=== PATIENT | female | born 1960 | race Native Hawaiian/Other Pacific Islander ===

== ENCOUNTER 2017-09-16 08:32 | Emergency (ER) | payer OTHER ==
[~2017-09-16] VITALS: Ht 157.5 cm; Wt 54.5 kg
[2017-09-16] MEDS ORDERED: IBUP-1022 PO (08:43)
[2017-09-16] MEDS ORDERED: ACYC200C8 PO (08:43)
[2017-09-16] MEDS ORDERED: PRENTAB40 PO (08:43)
[2017-09-16] MEDS ORDERED: ATOR1TAB21 PO (08:43)
[2017-09-16] MEDS ORDERED: MORPHINE 2 MG/ML 1ML SYRINGE IV ONE (09:15)
[2017-09-16] MEDS ORDERED: methylPREDNISolone INJ 125 MG/2 ML VIAL (J2930) IV ONE (09:15)
[2017-09-16] MEDS ORDERED: diphenhydrAMINE INJ 50MG/ML VIAL (J1200) IV STA (09:33)
[2017-09-16] MEDS ORDERED: ONDANSETRON 4MG/2ML VIAL (J2405) IV ONE (09:45)
[2017-09-16 10:29] VITALS: BP 110/69
--- NOTE | 2017-09-16 10:38 | REP ---
Clinical: Pain. Technique: Internal rotation, external rotation, and Y view of the left shoulder. Findings: Calcific tendinopathy with overlying soft tissue swelling likely involving the supraspinatus is appreciated. No acute fracture dislocation. Impression: Findings compatible with calcific tendinopathy. Signed by Blas Atkinson MD 09/16/2017 10:30 A
[2017-09-16] MEDS ORDERED: PERC5TAB12 PO ×2 (10:57→10:59)
[2017-09-16] MEDS ORDERED: CYCL10TA PO (11:02)
[2017-09-16] MEDS ORDERED: ZOFR4TAB3 PO (11:02)
--- NOTE | 2017-09-16 18:29 | ECGEPIP ---
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
== END 2017-09-16 11:14 | disposition home or self-care (01) ==
LOC: M ED 08:32
DX: K52.9 Noninfective gastroenteritis and colitis, unspecified (principal); M54.12 Radiculopathy, cervical region; M75.32 Calcific tendinitis of left shoulder
CPT/HCPCS: 73030; 93005; 96374; 96375; 99284; J1200; J2405; J2930